=== PATIENT | male | born 1975 | race Caucasian/White ===

== ENCOUNTER 2021-05-10 07:13 | Emergency (ER) | payer MEDICAID, OTHER ==
[~2021-05-10] VITALS: Ht 182.9 cm; Wt 90.7 kg
[2021-05-10 09:06] VITALS: BP 134/77
[2021-05-10] MEDS ORDERED: KETOROLAC TROMETH 60MG/2ML VIAL IM ONE (10:00)
== END 2021-05-10 10:12 | disposition home or self-care (01) ==
LOC: EDBD 07:13 → ER 07:13
DX: S02.2XXA Fracture of nasal bones, initial encounter for closed fracture (principal); S16.1XXA Strain of muscle, fascia and tendon at neck level, initial encounter; S00.03XA Contusion of scalp, initial encounter; S00.83XA Contusion of other part of head, initial encounter; F17.210 Nicotine dependence, cigarettes, uncomplicated; F12.10 Cannabis abuse, uncomplicated; Y04.2XXA Assault by strike against or bumped into by another person, initial encounter; Y93.89 Activity, other specified; Y92.89 Other specified places as the place of occurrence of the external cause; Y99.8 Other external cause status
CPT/HCPCS: 70450; 70486; 72125; 96372; 99285; J1885